=== PATIENT | male | born 1980 | race Caucasian/White ===

== ENCOUNTER → 2023-07-21 07:12 | Outpatient (REF) | payer BC, SELFPAY | LOC: RAD 07:12 | PROVIDERS: ATTENDING PHYSICIAN Surgery Vascular Surgery; FAMILY PHYSICIAN Family Medicine | DX: I77.73 Dissection of renal artery (principal) | CPT/HCPCS: 74174; Q9967 ==

== ENCOUNTER → 2024-02-16 14:09 | Outpatient (REF) | payer BC, SELFPAY | LOC: HWRAD 14:09 | PROVIDERS: ATTENDING PHYSICIAN Surgery Vascular Surgery; FAMILY PHYSICIAN Family Medicine | DX: I77.73 Dissection of renal artery (principal) | CPT/HCPCS: 74174; Q9967 ==

== ENCOUNTER → 2024-03-25 14:53 | Outpatient (REF) | payer BC, SELFPAY | LOC: HWRAD 14:53 | PROVIDERS: ATTENDING PHYSICIAN Family Medicine; FAMILY PHYSICIAN Family Medicine; REFERRING PHYSICIAN Surgery Vascular Surgery | DX: R22.2 Localized swelling, mass and lump, trunk (principal) | CPT/HCPCS: 76536 ==